=== PATIENT | female | born 1970 | race Caucasian/White ===

== ENCOUNTER 2018-09-02 18:36 | Emergency (ER) | payer SELFPAY ==
[~2018-09-02] VITALS: Ht 165.1 cm; Wt 76.0 kg
[2018-09-02 18:42] VITALS: BP 107/67
== END 2018-09-02 19:27 | disposition left against medical advice (07) ==
LOC: ER 18:36
DX: R07.89 Other chest pain (principal); Z53.21 Procedure and treatment not carried out due to patient leaving prior to being seen by health care provider